=== PATIENT | female | born 2000 | race African-American/Black ===

== ENCOUNTER 2020-02-10 15:41 | Emergency (ER) | payer MEDICAID ==
[~2020-02-10] VITALS: Ht 162.6 cm; Wt 50.0 kg
[2020-02-10 15:44] VITALS: BP 105/71
== END 2020-02-10 19:00 | disposition left against medical advice (07) ==
LOC: ER 15:41
DX: Z53.21 Procedure and treatment not carried out due to patient leaving prior to being seen by health care provider (principal); R51 Headache; M54.2 Cervicalgia; M54.9 Dorsalgia, unspecified; V49.9XXA Car occupant (driver) (passenger) injured in unspecified traffic accident, initial encounter; Y93.9 Activity, unspecified; Y92.410 Unspecified street and highway as the place of occurrence of the external cause

== ENCOUNTER 2021-02-16 20:02 | Observation (INO) | payer MEDICAID, MEDICARE ==
[~2021-02-16] VITALS: Ht 162.6 cm; Wt 58.1 kg
[2021-02-16] MEDS ORDERED: FERR-71 PO (20:36)
[2021-02-16] MEDS ORDERED: PREN-176 PO (20:36)
[2021-02-16] MEDS: LACTATED RINGERS 1,000 ML IV SCH (21:31)
[2021-02-16 23:38] LABS: CLARITY URINE CLOUDY (CLEAR); COLOR URINE DARK YELLOW (YELLOW); KETONES URINE 4+ (NEGATIVE); LEUKOCYTE ESTERASE URINE 3+ (NEGATIVE); NITRITE URINE NEGATIVE (NEGATIVE); OCCULT BLOOD URINE NEGATIVE (NEGATIVE); PH URINE 5.5 (4.5-8.0); PROTEIN URINE 1+ (NEGATIVE)
[2021-02-17] MEDS ORDERED: CEFAZOLIN 2,000 MG in DEXT 5% WATER 100 ML IV SCH (01:00)
[2021-02-17] MEDS: LACTATED RINGERS 1,000 ML IV SCH (01:06)
== END 2021-02-17 02:50 | disposition home or self-care (01) ==
LOC: 8 EST LDRP 20:02
PROVIDERS: ADMIT Obstetrics & Gynecology; ATTEND Obstetrics & Gynecology
DX: O26.893 Other specified pregnancy related conditions, third trimester (principal); R10.30 Lower abdominal pain, unspecified; O62.9 Abnormality of forces of labor, unspecified; Z3A.38 38 weeks gestation of pregnancy
CPT/HCPCS: 59025; 76815; 76818; 81003; 87086; 96361; 96365; G0378; J0690; J7060; 96360; 99281